=== PATIENT | female | born 1995 | race Caucasian/White ===

== ENCOUNTER 2018-07-22 21:39 | Emergency (ER) | payer OTHER, MEDICAID, SELFPAY ==
[2018-07-22 21:51] VITALS: BP 112/82; PULSE 104; RESP 18; TEMP 37.2; O2SAT 97; BMI 37.0
--- NOTE | 2018-07-22 22:42 | ED.RECABL ---
HPI - Recheck/Abnormal Lab/Rx General Chief Complaint: Recheck/Abnormal Lab/Rx Stated Complaint: 25 WKS UNABLE TO THINK WANTS TO PASS OUT Time Seen by Provider: 07/22/18 21:47 Source: patient Mode of arrival: ambulatory Limitations: no limitations History of Present Illness HPI narrative: 23-year-old female smoker is currently at 25 weeks and presents multiple rather vague symptoms. She states that for the past few days she has had some numbness and tingling of her face worse around her lips, the occasional spots in her vision. She denies nausea, vomiting or diarrhea. She denies any abdominal pain. She does have episodes hip pain which seems to be rather chronic for her. She was seen and evaluated at an outside facility yesterday and an appropriate evaluation and her diagnosis was anxiety. She presents to us today with ongoing symptoms and the request for a 2nd opinion. MD complaint: other Initial visit (ago): day(s) Initial visit for: other Symptoms since prior visit: no new symptoms Related Data Previous Rx's Medication Instructions Recorded promethazine 12.5 mg WI Q4-6H PRN #12 each 07/23/18 Allergies Allergy/AdvReac Type Severity Reaction Status Date / Time Iodinated Contrast- Oral and Allergy Verified 07/22/18 21:49 IV Dye metoclopramide [From Reglan] AdvReac Verified 07/22/18 21:48 Review of Systems Review of Systems ROS Unobtainable: All systems reviewed & are unremarkable except as noted in HPI and below Constitutional Denies chills, Reports fatigue, Denies fever(s), Denies lethargy and Denies weakness Eyes Denies change in vision, Denies eye discharge, Denies irritation and Reports loss of vision ENT Ears, Nose, Mouth, and Throat: Denies change in voice, Reports dizziness, Denies neck pain and Denies sore throat Cardiovascular Denies chest pain, Denies irregular heart rhythm, Denies lightheadedness, Denies palpitations, Denies dyspnea, Denies dyspnea on exertion and Denies orthopnea Respiratory Denies cough, Denies dyspnea, Denies dyspnea on exertion and Denies wheezing Gastrointestinal Gastrointestinal: Denies abdominal pain, Denies change in bowel habits, Denies diarrhea, Denies nausea and Denies vomiting Genitourinary Denies hematuria, Denies flank pain, Denies urinary incontinence and Denies urinary urgency Musculoskeletal Denies neck pain and Reports tingling Integumentary/Breasts Denies pruritus, Denies erythema, Denies rash and Denies wounds Neurologic Denies confusion, Reports dizziness, Reports loss of vision, Reports sensory deficit, Reports tingling and Denies weakness Psychiatric Denies anxiety, Denies confusion, Denies depression, Denies homicidal ideation and Denies suicidal ideation Endocrine Reports fatigue and Denies palpitations Hematologic/Lymphatic Denies easy bruising Allergic/Immunologic Denies wheezing PFSH Medical History Asthma (Acute) Kidney infection (Acute) PIH ( induced hypertension) (Acute) SVT (supraventricular tachycardia) (Acute) Surgical History Hx of appendectomy (Acute) Social History Smoking Status: Current every day smoker Social History Smoking Status: Current every day smoker Exam Narrative Exam Narrative: GENERAL: 23-year-old female in mild distress, seems a bit anxious HEAD: Atraumatic. Normocephalic. No temporal or scalp tenderness. EYES: Pupils equal round and reactive. Extraocular motions intact. No scleral icterus. No injection or drainage. ENT: Nose without bleeding, purulent drainage or septal hematoma. Throat without erythema, tonsillar hypertrophy or exudate. Uvula midline. Airway patent. NECK: Trachea midline. No JVD or lymphadenopathy. Supple, nontender, no meningeal signs. CARDIOVASCULAR: Regular rate and rhythm without murmurs, gallops, or rubs. RESPIRATORY: Clear to auscultation. Breath sounds equal bilaterally. No wheezes, rales, or rhonchi. GASTROINTESTINAL: Abdomen soft, non-tender, above umbilicus. No hepato-splenomegaly, or palpable masses. No guarding. EXTREMITIES: No clubbing, cyanosis, or edema. No joint tenderness, effusion, or edema noted. BACK: Nontender without deformity or crepitance. No flank tenderness. NEURO: AOx3. SKIN: No rash or erythema. Initial Vital Signs Initial Vital Signs: Vital Signs Temperature 99.0 F 07/22/18 21:51 Pulse Rate 104 H 07/22/18 21:51 Respiratory Rate 18 07/22/18 21:51 Blood Pressure 112/82 07/22/18 21:51 Pulse Oximetry 97 07/22/18 21:51 Course Orders Ordered: ED Orders 07/22/18 22:07 EKG-12 Lead Stat 07/22/18 22:40 Complete Blood Count AUTO DIFF Stat Comprehensive Metabolic Panel Stat Urinalysis and Microscopic Stat Reevaluation(s) Reevaluation #1: Lengthy discussion with the patient and family friend regarding imaging and the possibility of radiation exposure to the fetus, we've discussed that given ongoing neurologic symptoms of vision, facial numbness, arm/shoulder tingling that it would certainly be my recommendation to perform a head CT and shield abdomen. We've discussed that benefits outweigh risks. Patient has had questions answered to her apparent satisfaction Vital Signs - 8 hr 07/22/18 21:51 Temperature 99.0 F Pulse Rate 104 H Respiratory Rate 18 Blood Pressure 112/82 Pulse Oximetry 97 MDM - Recheck/Abnormal Lab/Rx Lab Data Attestation: I reviewed the patient's lab results. Result diagrams: 07/22/18 22:58 07/22/18 22:58 Lab Results 07/22/18 07/22/18 Range/Units 22:58 22:58 WBC 10.0 (4.5-11.0) X10^3/uL RBC 3.43 L (4.0-5.2) X10^6/uL Hgb 10.1 L (12.0-16.0) g/dL Hct 29.5 L (36-46) % MCV 86.2 (80-100) fL MCH 29.6 (26-34) PG MCHC 34.3 (30-36) % RDW 12.9 (11.6-14.8) % Plt Count 236 (150-400) X10^3/uL Neut % (Auto) 68.5 (50-75) % Lymph % (Auto) 18.7 L (25-40) % [place] % (Auto) 9.6 (3-14) % Eos % (Auto) 2.8 (2-4) % Baso % (Auto) 0.4 (0-2) % Neut # (Auto) 6800 (2593-1120) /uL Lymph # (Auto) 1900 (4875-4296) /uL [place] # (Auto) 1000 H (0-900) /uL Eos # (Auto) 300 (0-450) /uL Baso # (Auto) 0 (0-100) /uL Sodium 135 L (137-145) mmol/L Potassium 3.4 (3.4-5.1) mmol/L Chloride 104 (98-107) mmol/L Carbon Dioxide 26 (22-32) mmol/L BUN 10 (7-17) mg/dL Creatinine 0.50 L (0.52-1.04) mg/dL Estimated GFR > 60.0 (>60) mL/min BUN/Creatinine Ratio 20.0 (6-22) Glucose 95 (70-100) mg/dL Calcium 9.2 (8.4-10.2) mg/dL Total Bilirubin 0.1 L (0.2-1.3) mg/dL AST 7 L (14-36) IU/L ALT 18 (9-52) IU/L Alkaline Phosphatase 70 (38-126) U/L Total Protein 6.2 L (6.3-8.2) g/dL Albumin 3.1 L (3.5-5.0) g/dL Globulin 3.1 (1.7-4.1) g/dL Albumin/Globulin Ratio 1.0 (1.0-2.8) Urine Dip Bedside Urine Glucose Negative Bedside Urine Bilirubin - Negative Bedside Urine Ketone - Negative Urine Specific [place] 1.020 Bedside Urine Occult Blood - Negative Bedside Urine pH 6.0 Bedside Urine Protein - Negative Bedside Urine Urobilinogen - Negative Bedside Urine Nitrite - Negative Bedside Urine Leukocytes - Negative Esterase Imaging Data CT scan - head: Radiologist's impression: [address] [address] [address] Scan Report Signed Patient: Constanza Mackay [facility]#: [id number] : 1995Acct:[id number] Age/Sex: 23 / FDate of Service: 07/22/18 Loc: ED Accession Number: [id number] Procedure: CT head/brain wo con Ordering Provider: Jourdan Esqueda D.O. PROCEDURE: CT HEAD/BRAIN WO CON INDICATIONS: Headache, vision change, numbness tingling TECHNIQUE: Noncontrast 4.5 mm thick angled axial sections acquired from the foramen magnum to the vertex, with coronal and sagittal reformats. For radiation dose reduction, the following was used: automated exposure control, adjustment of mA and/or kV according to patient size. COMPARISON: None. FINDINGS: Image quality: Excellent. CSF spaces: Basal cisterns are patent. No extra-axial fluid collections. Ventricles are normal in size and shape. Brain: No midline shift. No intracranial masses or hemorrhage. No evidence acute stroke. Wiseman-white matter interface is normal. Skull and face: Calvarium and visualized facial bones are intact, without suspicious lesions. Sinuses: Visualized sinuses and mastoids are clear. IMPRESSION: Negative head CT, with no evidence of acute stroke, hemorrhage, or mass. Comment: Final report is concurrent with the initial interpretation by [facility] Dictated by: Cristian Poe M.D. on 07/23/2018 at 7:50 Approved by: Cristian Poe M.D. on 07/23/2018 at 7:51 MDM Narrative Medical decision making narrative: Multiple etiologies for patient's symptoms considered including: [Preeclampsia versus stroke versus electrolyte abnormality versus other] Patient's symptoms improved or duration of stay with above-stated therapies. Findings and discharge diagnosis discussed with patient/family followed by verbalization of understanding Return precautions discussed with patient/family whom verbalize understanding. Discharge Plan Departure Patient Disposition: Home Clinical Impression: Feared complaint without diagnosis, Facial numbness, Gastroesophageal reflux disease Discharge Date/Time: 07/23/18 01:38 Interventions: ED Discharge Assessment Last Done: 07/23/18 01:38 Instructions: DI for Gastroesophageal Reflux Disease (GERD) Activity Restrictions/Additional Instructions: *You have been diagnosed with [ facial numbness, GERD] *What to do: *Take medications as directed: [id number] proton pump inhibitors *Follow up with your primary care provider in 2-3 days, call for an appointment. Let them know you were seen in the Emergency Department and that we ask that you be seen in follow up *Return to ER if you should have any new, worsening or concerning symptoms Prescriptions: New promethazine 12.5 mg suppository 12.5 mg [place] Q4-6H PRN (Reason: nausea and vomiting) Qty: 12 RF: 0
[2018-07-22 23:10] LABS: Add Manual Diff / Slide Review NO; Basophils Absolute Auto 0 /uL (0-100); Basophils Percent Auto 0.4 % (0-2); Eosinophils Absolute Auto 300 /uL (0-450); Eosinophils Percent Auto 2.8 % (2-4); Hematocrit 29.5 % (36-46); Hemoglobin 10.1 g/dL (12.0-16.0); Lymphocytes Absolute Auto 1900 /uL (1100-4500); Lymphocytes Percent Auto 18.7 % (25-40); Mean Corpuscular HGB Conc 34.3 % (30-36); Mean Corpuscular Hemoglobin 29.6 PG (26-34); Mean Corpuscular Volume 86.2 fL (80-100); Monocytes Absolute Auto 1000 /uL (0-900); Monocytes Percent Auto 9.6 % (3-14); Neutrophils Absolute Auto 6800 /uL (1500-7000); Neutrophils Percent Auto 68.5 % (50-75); Platelet Count 236 X10^3/uL (150-400); Red Blood Cell Count 3.43 X10^6/uL (4.0-5.2); Red Cell Distribution Width 12.9 % (11.6-14.8)
[2018-07-22 23:14] LABS: Alanine Aminotransferase 18 IU/L (9-52); Albumin 3.1 g/dL (3.5-5.0); Alkaline Phosphatase 70 U/L (38-126); Aspartate Aminotransferase 7 IU/L (14-36); Bilirubin Total 0.1 mg/dL (0.2-1.3); Blood Urea Nitrogen 10 mg/dL (7-17); Calcium 9.2 mg/dL (8.4-10.2); Carbon Dioxide 26 mmol/L (22-32); Chloride 104 mmol/L (98-107); Estimated Glomerular Filt Rate > 60.0 mL/min (>60); Globulin 3.1 g/dL (1.7-4.1); Glucose 95 mg/dL (70-100); HEMOLYSIS < 15 (0-50); Potassium 3.4 mmol/L (3.4-5.1); Sodium 135 mmol/L (137-145); Total Protein 6.2 g/dL (6.3-8.2)
--- NOTE | 2018-07-22 23:33 | DI.CT.S_ITS ---
PROCEDURE: CT HEAD/BRAIN WO CON INDICATIONS: Headache, vision change, numbness tingling TECHNIQUE: Noncontrast 4.5 mm thick angled axial sections acquired from the foramen magnum to the vertex, with coronal and sagittal reformats. For radiation dose reduction, the following was used: automated exposure control, adjustment of mA and/or kV according to patient size. COMPARISON: None. FINDINGS: Image quality: Excellent. CSF spaces: Basal cisterns are patent. No extra-axial fluid collections. Ventricles are normal in size and shape. Brain: No midline shift. No intracranial masses or hemorrhage. No evidence acute stroke. Wiseman-white matter interface is normal. Skull and face: Calvarium and visualized facial bones are intact, without suspicious lesions. Sinuses: Visualized sinuses and mastoids are clear. IMPRESSION: Negative head CT, with no evidence of acute stroke, hemorrhage, or mass. Comment: Final report is concurrent with the initial interpretation by [facility] Dictated by: Cristian Poe M.D. on 07/23/2018 at 7:50 Approved by: Cristian Poe M.D. on 07/23/2018 at 7:51
[2018-07-23 01:38] VITALS: BP 121/70; PULSE 93; RESP 16; O2SAT 99
--- NOTE | 2018-07-23 22:46 | ED_ITS ---
HPI - Recheck/Abnormal Lab/Rx General Chief Complaint: Recheck/Abnormal Lab/Rx Stated Complaint: 25 WKS UNABLE TO THINK WANTS TO PASS OUT Time Seen by Provider: 07/22/18 21:47 Source: patient Mode of arrival: ambulatory Limitations: no limitations History of Present Illness HPI narrative: 23-year-old female smoker is currently at 25 weeks and presents multiple rather vague symptoms. She states that for the past few days she has had some numbness and tingling of her face worse around her lips, the occasional spots in her vision. She denies nausea, vomiting or diarrhea. She denies any abdominal pain. She does have episodes hip pain which seems to be rather chronic for her. She was seen and evaluated at an outside facility yesterday and an appropriate evaluation and her diagnosis was anxiety. She presents to us today with ongoing symptoms and the request for a 2nd opinion. MD complaint: other Initial visit (ago): day(s) Initial visit for: other Symptoms since prior visit: no new symptoms Related Data Previous Rx's Medication Instructions Recorded promethazine 12.5 mg [place] Q4-6H PRN #12 each 07/23/18 Allergies Allergy/AdvReac Type Severity Reaction Status Date / Time Iodinated Contrast- Oral and Allergy Verified 07/22/18 21:49 IV Dye metoclopramide [From Reglan] AdvReac Verified 07/22/18 21:48 Review of Systems Review of Systems ROS Unobtainable: All systems reviewed & are unremarkable except as noted in HPI and below Constitutional Denies chills, Reports fatigue, Denies fever(s), Denies lethargy and Denies weakness Eyes Denies change in vision, Denies eye discharge, Denies irritation and Reports loss of vision ENT Ears, Nose, Mouth, and Throat: Denies change in voice, Reports dizziness, Denies neck pain and Denies sore throat Cardiovascular Denies chest pain, Denies irregular heart rhythm, Denies lightheadedness, Denies palpitations, Denies dyspnea, Denies dyspnea on exertion and Denies orthopnea Respiratory Denies cough, Denies dyspnea, Denies dyspnea on exertion and Denies wheezing Gastrointestinal Gastrointestinal: Denies abdominal pain, Denies change in bowel habits, Denies diarrhea, Denies nausea and Denies vomiting Genitourinary Denies hematuria, Denies flank pain, Denies urinary incontinence and Denies urinary urgency Musculoskeletal Denies neck pain and Reports tingling Integumentary/Breasts Denies pruritus, Denies erythema, Denies rash and Denies wounds Neurologic Denies confusion, Reports dizziness, Reports loss of vision, Reports sensory deficit, Reports tingling and Denies weakness Psychiatric Denies anxiety, Denies confusion, Denies depression, Denies homicidal ideation and Denies suicidal ideation Endocrine Reports fatigue and Denies palpitations Hematologic/Lymphatic Denies easy bruising Allergic/Immunologic Denies wheezing PFSH Medical History Asthma (Acute) Kidney infection (Acute) PIH ( induced hypertension) (Acute) SVT (supraventricular tachycardia) (Acute) Surgical History Hx of appendectomy (Acute) Social History Smoking Status: Current every day smoker Social History Smoking Status: Current every day smoker Exam Narrative Exam Narrative: GENERAL: 23-year-old female in mild distress, seems a bit anxious HEAD: Atraumatic. Normocephalic. No temporal or scalp tenderness. EYES: Pupils equal round and reactive. Extraocular motions intact. No scleral icterus. No injection or drainage. ENT: Nose without bleeding, purulent drainage or septal hematoma. Throat without erythema, tonsillar hypertrophy or exudate. Uvula midline. Airway patent. NECK: Trachea midline. No JVD or lymphadenopathy. Supple, nontender, no meningeal signs. CARDIOVASCULAR: Regular rate and rhythm without murmurs, gallops, or rubs. RESPIRATORY: Clear to auscultation. Breath sounds equal bilaterally. No wheezes, rales, or rhonchi. GASTROINTESTINAL: Abdomen soft, non-tender, above umbilicus. No hepato- splenomegaly, or palpable masses. No guarding. EXTREMITIES: No clubbing, cyanosis, or edema. No joint tenderness, effusion, or edema noted. BACK: Nontender without deformity or crepitance. No flank tenderness. NEURO: AOx3. SKIN: No rash or erythema. Initial Vital Signs Initial Vital Signs: Vital Signs Temperature 99.0 F 07/22/18 21:51 Pulse Rate 104 H 07/22/18 21:51 Respiratory Rate 18 07/22/18 21:51 Blood Pressure 112/82 07/22/18 21:51 Pulse Oximetry 97 07/22/18 21:51 Course Orders Ordered: ED Orders 07/22/18 22:07 EKG-12 Lead Stat 07/22/18 22:40 Complete Blood Count AUTO DIFF Stat Comprehensive Metabolic Panel Stat Urinalysis and Microscopic Stat Reevaluation(s) Reevaluation #1: Lengthy discussion with the patient and family friend regarding imaging and the possibility of radiation exposure to the fetus, we've discussed that given ongoing neurologic symptoms of vision, facial numbness, arm/shoulder tingling that it would certainly be my recommendation to perform a head CT and shield abdomen. We've discussed that benefits outweigh risks. Patient has had questions answered to her apparent satisfaction Vital Signs - 8 hr 07/22/18 21:51 Temperature 99.0 F Pulse Rate 104 H Respiratory Rate 18 Blood Pressure 112/82 Pulse Oximetry 97 MDM - Recheck/Abnormal Lab/Rx Lab Data Attestation: I reviewed the patient's lab results. Result diagrams: 07/22/18 22:58 07/22/18 22:58 Lab Results 07/22/18 07/22/18 Range/Units 22:58 22:58 WBC 10.0 (4.5-11.0) X10^3/uL RBC 3.43 L (4.0-5.2) X10^6/uL Hgb 10.1 L (12.0-16.0) g/dL Hct 29.5 L (36-46) % MCV 86.2 (80-100) fL MCH 29.6 (26-34) PG MCHC 34.3 (30-36) % RDW 12.9 (11.6-14.8) % Plt Count 236 (150-400) X10^3/uL Neut % (Auto) 68.5 (50-75) % Lymph % (Auto) 18.7 L (25-40) % [place] % (Auto) 9.6 (3-14) % Eos % (Auto) 2.8 (2-4) % Baso % (Auto) 0.4 (0-2) % Neut # (Auto) 6800 (8108-1710) /uL Lymph # (Auto) 1900 (1669-6311) /uL [place] # (Auto) 1000 H (0-900) /uL Eos # (Auto) 300 (0-450) /uL Baso # (Auto) 0 (0-100) /uL Sodium 135 L (137-145) mmol/L Potassium 3.4 (3.4-5.1) mmol/L Chloride 104 (98-107) mmol/L Carbon Dioxide 26 (22-32) mmol/L BUN 10 (7-17) mg/dL Creatinine 0.50 L (0.52-1.04) mg/dL Estimated GFR > 60.0 (>60) mL/min BUN/Creatinine Ratio 20.0 (6-22) Glucose 95 (70-100) mg/dL Calcium 9.2 (8.4-10.2) mg/dL Total Bilirubin 0.1 L (0.2-1.3) mg/dL AST 7 L (14-36) IU/L ALT 18 (9-52) IU/L Alkaline Phosphatase 70 (38-126) U/L Total Protein 6.2 L (6.3-8.2) g/dL Albumin 3.1 L (3.5-5.0) g/dL Globulin 3.1 (1.7-4.1) g/dL Albumin/Globulin Ratio 1.0 (1.0-2.8) Urine Dip Bedside Urine Glucose Negative Bedside Urine Bilirubin - Negative Bedside Urine Ketone - Negative Urine Specific [place] 1.020 Bedside Urine Occult Blood - Negative Bedside Urine pH 6.0 Bedside Urine Protein - Negative Bedside Urine Urobilinogen - Negative Bedside Urine Nitrite - Negative Bedside Urine Leukocytes - Negative Esterase Imaging Data CT scan - head: Radiologist's impression: [address] [address] [address] Scan Report Signed Patient: Constanza Mackay [employer] [facility]#: [id number] : 1995Acct:[id number] Age/Sex: 23 / FDate of Service: 07/22/18 Loc: ED Accession Number: [id number] Procedure: CT head/brain wo con Ordering Provider: Jourdan Esqueda D.O. PROCEDURE: CT HEAD/BRAIN WO CON INDICATIONS: Headache, vision change, numbness tingling TECHNIQUE: Noncontrast 4.5 mm thick angled axial sections acquired from the foramen magnum to the vertex, with coronal and sagittal reformats. For radiation dose reduction, the following was used: automated exposure control, adjustment of mA and/or kV according to patient size. COMPARISON: None. FINDINGS: Image quality: Excellent. CSF spaces: Basal cisterns are patent. No extra-axial fluid collections. Ventricles are normal in size and shape. Brain: No midline shift. No intracranial masses or hemorrhage. No evidence acute stroke. Wiseman-white matter interface is normal. Skull and face: Calvarium and visualized facial bones are intact, without suspicious lesions. Sinuses: Visualized sinuses and mastoids are clear. IMPRESSION: Negative head CT, with no evidence of acute stroke, hemorrhage, or mass. Comment: Final report is concurrent with the initial interpretation by [facility] Dictated by: Cristian Poe M.D. on 07/23/2018 at 7:50 Approved by: Cristian Poe M.D. on 07/23/2018 at 7:51 MDM Narrative Medical decision making narrative: Multiple etiologies for patient's symptoms considered including: [Preeclampsia versus stroke versus electrolyte abnormality versus other] Patient's symptoms improved or duration of stay with above-stated therapies. Findings and discharge diagnosis discussed with patient/family followed by verbalization of understanding Return precautions discussed with patient/family whom verbalize understanding. Discharge Plan Departure Patient Disposition: Home Clinical Impression: Feared complaint without diagnosis, Facial numbness, Gastroesophageal reflux disease Discharge Date/Time: 07/23/18 01:38 Interventions: ED Discharge Assessment Last Done: 07/23/18 01:38 Instructions: DI for Gastroesophageal Reflux Disease (GERD) Activity Restrictions/Additional Instructions: *You have been diagnosed with [ facial numbness, GERD] *What to do: *Take medications as directed: [id number] proton pump inhibitors *Follow up with your primary care provider in 2-3 days, call for an appointment. Let them know you were seen in the Emergency Department and that we ask that you be seen in follow up *Return to ER if you should have any new, worsening or concerning symptoms Prescriptions: New promethazine 12.5 mg suppository 12.5 mg [place] Q4-6H PRN (Reason: nausea and vomiting) Qty: 12 RF: 0
== END 2018-07-23 01:38 | disposition home or self-care (01) ==
PROVIDERS: Emergency Provider Emergency Medicine
DX: R20.0 Anesthesia of skin (principal); K21.9 Gastro-esophageal reflux disease without esophagitis; H53.8 Other visual disturbances; Z71.1 Person with feared health complaint in whom no diagnosis is made; Z33.1 Pregnant state, incidental
CPT/HCPCS: 36591; 70450; 80053; 81003; 85025; 93005; 99283; 99285; 99291

== ENCOUNTER 2018-10-21 20:59 | Outpatient (CLI) | payer OTHER, MEDICAID, SELFPAY ==
[2018-10-21 22:08] LABS: Appearance Urine UA CLEAR; Bilirubin Urine UA NEGATIVE (NEGATIVE); Color Urine UA YELLOW; Glucose Urine UA NEGATIVE (Negative); Ketones Urine UA NEGATIVE (NEGATIVE); Leukocyte Esterase Urine UA NEGATIVE (NEGATIVE); Nitrite Urine UA NEGATIVE (Negative); Occult Blood Urine UA NEGATIVE (Negative); Protein Urine UA 1+ (Negative); RBC Urine None Seen (0-5/HPF); Specific Gravity Urine UA 1.015 (1.000-1.035); Urobilinogen Urine UA 0.2 E.U./dL (0.2); WBC Urine None Seen (0-5/HPF); pH Urine UA 8.5 (4.5-8.0)
[2018-10-21 22:16] LABS: Bacteria Urine Many (>30); Mucus Urine 1+ (Negative); Squamous Epithelial Cell Urine 0-1 /HPF (0-5/HPF)
[2018-10-21 22:18] LABS: Culture Indicated Urine Cult Not Indicated
[2018-10-21] MEDS: MORPHINE 10 MG/ML INJ IM (23:30)
[2018-10-21] MEDS: ONDANSETRON 4 MG ODT SL (23:30)
[2018-10-21] MEDS: MAG HYDROX/ALUM/SIMETH 30 ML UDC PO (23:30)
== END 2018-10-21 23:45 | disposition home or self-care (01) ==
LOC: OB 10-24 14:55
PROVIDERS: Visit Provider Family Medicine
DX: O26.893 Other specified pregnancy related conditions, third trimester (principal); M54.9 Dorsalgia, unspecified; R10.11 Right upper quadrant pain; R11.11 Vomiting without nausea; Z3A.38 38 weeks gestation of pregnancy
CPT/HCPCS: 59050; 81001; 96372; G0378; G0379; J2270

== ENCOUNTER 2021-05-18 23:09 | Emergency (ER) | payer OTHER, MEDICAID, SELFPAY ==
[2021-05-18 23:17] VITALS: BP 120/70; PULSE 114; RESP 22; TEMP 36.7; O2SAT 99
[2021-05-18 23:40] LABS: Add Manual Diff / Slide Review NO; Basophils Absolute Auto 100 /uL (0-100); Basophils Percent Auto 0.7 % (0-2); Eosinophils Absolute Auto 400 /uL (0-450); Eosinophils Percent Auto 4.5 % (2-4); Hemoglobin 12.9 g/dL (12.0-16.0); Lymphocytes Absolute Auto 2500 /uL (1100-4500); Lymphocytes Percent Auto 25.3 % (25-40); Mean Corpuscular Hemoglobin 28.3 PG (26-34); Mean Corpuscular Volume 83.4 fL (80-100); Monocytes Absolute Auto 800 /uL (0-900); Monocytes Percent Auto 8.2 % (3-14); Neutrophils Absolute Auto 6100 /uL (1500-7000); Neutrophils Percent Auto 61.3 % (50-75); Platelet Count 222 X10^3/uL (150-400); Red Blood Cell Count 4.56 X10^6/uL (4.0-5.2); Red Cell Distribution Width 13.7 % (11.6-14.8)
[2021-05-18 23:47] LABS: BUN Creatinine Ratio 17.9 (6-22); Blood Urea Nitrogen 15 mg/dL (7-17); Carbon Dioxide 26 mmol/L (22-32); Chloride 108 mmol/L (98-107); Estimated Glomerular Filt Rate > 60.0 mL/min (>60); Glucose 79 mg/dL (70-100); HEMOLYSIS 19 (0-50); Potassium 3.7 mmol/L (3.4-5.1); Sodium 139 mmol/L (137-145)
--- NOTE | 2021-05-18 23:51 | ED_ITS ---
HPI - Female Genitourinary General Chief complaint: Urogenital-Female Stated complaint: heart palps/kidney pain/vag. discharge x3 days Time Seen by Provider: 05/18/21 23:15 Source: patient Mode of arrival: Ambulatory History of Present Illness HPI Narrative: 26-year-old female daily smoker with history of SVT presents with her sister and a chief complaint of pelvic discomfort and vaginal discharge over the past few days. She does have some left lower quadrant discomfort. She denies fever, chills nor nausea or vomiting. She does admit to a new sexual partner about 2 weeks ago. Additionally, she states that she has some discomfort and itching along with a rash in the skin folds of her groin and also near her scar. She denies any dysuria, frequency or urgency. Additionally, she complains of increasing palpitations over the course of the day but denies any chest pain or shortness of breath. She has a longstanding history of SVT and has been on metoprolol but has run out of her prescription because she currently does not have a doctor. Related Data Previous Rx's Medication Instructions Recorded promethazine 12.5 mg rectal 12.5 mg OR Q4-6H PRN #12 each 07/23/18 suppository doxycycline hyclate 100 mg tablet 100 mg PO BID #20 tab 05/19/21 hydrocodone 5 mg-acetaminophen 325 1 tab PO Q4-6H PRN #10 tab 05/19/21 mg tablet ketorolac 10 mg tablet 10 mg PO Q6H PRN #14 tab 05/19/21 metoprolol tartrate 25 mg tablet 25 mg PO BID #60 tab 05/19/21 metronidazole 500 mg tablet 500 mg PO BID 14 Days #28 tab 05/19/21 nystatin 100,000 unit/gram topical 1 applic TOPICAL BID 7 Days #30 g 05/19/21 cream ondansetron 4 mg disintegrating 4 mg PO TID-QID PRN #10 tab 05/19/21 tablet Allergies Allergy/AdvReac Type Severity Reaction Status Date / Time Iodinated Contrast Media Allergy Verified 07/22/18 21:49 metoclopramide [From Reglan] AdvReac Verified 07/22/18 21:48 Review of Systems Review of Systems Narrative: GENERAL: Denies chills, fatigue, malaise, fever, sweats. HEENT: Denies sinus pain, ear pain, sore throat, difficulty swallowing, dizziness. RESPIRATORY: Denies dyspnea, cough, wheezing, hemoptysis, sputum. CARDIOVASCULAR: Denies chest pain, palpitations, orthopnea, edema, GASTROINTESTINAL: Denies nausea, vomiting, abdominal pain, diarrhea, constipation, melena. : See HPI. MUSCULOSKELETAL: denies weakness, joint pain, or bony pain SKIN: See HPI NEUROLOGIC: Denies weakness, headache, numbness, change in speech, confusion, seizures, incoordination. PSYCHIATRIC: No concerning psychosocial issues. 12 point review of systems is negative except for those stated above Patient History Medical History (Updated 05/19/21 @ 01:00 by Jourdan Esqueda DO) Asthma Kidney infection PIH ( induced hypertension) SVT (supraventricular tachycardia) Surgical History Hx of appendectomy alcohol intake frequency: other Substance Use Type: does not use Exam Narrative Exam Narrative: GENERAL: [26 year old patient appears stated age. Well-developed patient, in mild distress. HEAD: Atraumatic. Normocephalic. EYES: Pupils equal round and reactive. Extraocular motions intact. No scleral icterus. No injection or drainage. ENT: Nose without bleeding, purulent drainage. Throat without erythema, tonsillar hypertrophy or exudate. Airway patent. NECK: Trachea midline. Non tender CARDIOVASCULAR: Regular rate and rhythm without murmurs, gallops, or rubs. RESPIRATORY: Clear to auscultation. Breath sounds equal bilaterally. No wheezes, rales, or rhonchi. GASTROINTESTINAL: Abdomen soft, non-tender, nondistended. PELVIC: Foul-smelling yellowish discharge from a closed cervix. No adnexal masses but patient does report significant tenderness to palpation of by manual exam on her left side. This is performed with a female nursing obstetrician and gynaecologist at the bedside and patient's permission EXTREMITIES: No edema or joint tenderness. BACK: Nontender without deformity or crepitance. No flank tenderness. NEURO: AOx3. SKIN: No rash or erythema of visible areas Initial Vital Signs Initial Vital Signs: Vital Signs Temperature 98.0 F 05/18/21 23:17 Pulse Rate 114 H 05/18/21 23:17 Respiratory Rate 22 05/18/21 23:17 Blood Pressure 120/70 05/18/21 23:17 Pulse Oximetry 99 05/18/21 23:17 Course Orders Ordered: ED Orders 05/18/21 23:28 BMP [Basic Metabolic Panel] Stat CBC Auto Diff [Complete Blood Count AUTO DIFF] Stat TSH w/ Reflex to FT4 Stat 05/18/21 23:41 Chlamydia Gonorrhea PCR -URINE Stat Genital Culture Stat Wet Prep Tric BV Naheed Stat 05/19/21 US pelvic complete Stat 05/19/21 00:10 Test Urine Stat Urinalysis and Microscopic Stat Urine Culture Stat Discontinued Medications Hydrocodone Bitart/Acetaminophen (Hydrocodone/Acet 5/325 Prepack) 1 bottle MISC SEEINSTR ONE Stop: 05/19/21 00:48 Last Admin: 05/19/21 01:04 Dose: 1 bottle Documented by: CARISSA Hydromorphone HCl (Hydromorphone 0.5 Mg Inj) 0.5 mg IV NOW ONE Stop: 05/19/21 00:06 Last Admin: 05/19/21 00:11 Dose: 0.5 mg Documented by: TOÑO Sodium Chloride (Normal Saline 0.9%) 1,000 mls @ 1,000 mls/hr IV BOLUS ONE Stop: 05/19/21 00:38 Last Admin: 05/19/21 00:00 Dose: 1,000 mls/hr Documented by: TOÑO Ceftriaxone Sodium 500 mg/ (Dextrose) 50 mls @ 100 mls/hr IV NOW ONE Stop: 05/18/21 23:40 Last Infusion: 05/19/21 00:53 Dose: 0 mls/hr Documented by: Admin: 05/19/21 00:00 Dose: 100 mls/hr Documented by: TOÑO Ceftriaxone Sodium 1,000 mg/ (Sodium Chloride) 100 mls @ 200 mls/hr IV NOW ONE Stop: 05/18/21 23:56 Last Admin: 05/19/21 00:04 Dose: Not Given Documented by: TOÑO Ketorolac Tromethamine (Ketorolac 30 Mg/Ml Vial) 15 mg IV NOW ONE Stop: 05/18/21 23:40 Last Admin: 05/19/21 00:00 Dose: 15 mg Documented by: TOÑO Ondansetron HCl (Ondansetron 4 Mg/2 Ml Inj) 4 mg IV NOW ONE Stop: 01/23/22 23:40 Last Admin: 05/19/21 00:00 Dose: 4 mg Documented by: TOÑO Ondansetron HCl (Ondansetron 4 Mg Odt Prepack) 1 bottle MISC SEEINSTR ONE Stop: 05/19/21 00:48 Last Admin: 05/19/21 01:04 Dose: 1 bottle Documented by: CARISSA Vital Signs Vital signs: Vital Signs - 8 hr 05/18/21 23:17 05/19/21 01:10 Temperature 98.0 F Pulse Rate 114 H 96 H Respiratory Rate 22 18 Blood Pressure 120/70 122/68 Pulse Oximetry 99 100 MDM - Female Genitourinary Lab Data Result diagrams: 05/18/21 23:28 05/18/21 23:28 Labs: Lab Results 05/18/21 05/18/21 05/18/21 Range/Units 23:28 23:28 23:28 WBC 10.0 (4.5-11.0) X10^3/uL RBC 4.56 (4.0-5.2) X10^6/uL Hgb 12.9 (12.0-16.0) g/dL Hct 38.0 (36-46) % MCV 83.4 (80-100) fL MCH 28.3 (26-34) PG MCHC 34.0 (30-36) % RDW 13.7 (11.6-14.8) % Plt Count 222 (150-400) X10^3/uL Neut % (Auto) 61.3 (50-75) % Lymph % (Auto) 25.3 (25-40) % Dawes % (Auto) 8.2 (3-14) % Eos % (Auto) 4.5 H (2-4) % Baso % (Auto) 0.7 (0-2) % Neut # (Auto) 6100 (7492-0844) /uL Lymph # (Auto) 2500 (2028-3907) /uL Dawes # (Auto) 800 (0-900) /uL Eos # (Auto) 400 (0-450) /uL Baso # (Auto) 100 (0-100) /uL Sodium 139 (137-145) mmol/L Potassium 3.7 (3.4-5.1) mmol/L Chloride 108 H (98-107) mmol/L Carbon Dioxide 26 (22-32) mmol/L BUN 15 (7-17) mg/dL Creatinine 0.84 (0.52-1.04) mg/dL Estimated GFR > 60.0 (>60) mL/min BUN/Creatinine Ratio 17.9 (6-22) Glucose 79 (70-100) mg/dL Calcium 9.0 (8.4-10.2) mg/dL TSH 0.73 (0.47-4.68) uIU/mL Urine Color Urine Appearance Urine pH (4.5-8.0) Ur Specific Thoreau (1.000-1.035) Urine Protein (Negative) Urine Glucose (UA) (Negative) g/dL Urine Ketones (NEGATIVE) Urine Occult Blood (Negative) Urine Nitrate (Negative) Urine Bilirubin (NEGATIVE) Urine Urobilinogen (0.2) E.U./dL Ur Leukocyte Esterase (NEGATIVE) Urine RBC (0-5/HPF) Urine WBC (0-5/HPF) Ur Squamous Epith Cells (0-5/HPF) Urine Bacteria (None) Urine Mucus (Negative) Urine Trichomonas (None Seen) Ur Culture Indicated? Urine Test (Negative) 05/19/21 05/19/21 Range/Units 00:10 00:10 WBC (4.5-11.0) X10^3/uL RBC (4.0-5.2) X10^6/uL Hgb (12.0-16.0) g/dL Hct (36-46) % MCV (80-100) fL MCH (26-34) PG MCHC (30-36) % RDW (11.6-14.8) % Plt Count (150-400) X10^3/uL Neut % (Auto) (50-75) % Lymph % (Auto) (25-40) % Dawes % (Auto) (3-14) % Eos % (Auto) (2-4) % Baso % (Auto) (0-2) % Neut # (Auto) (0197-9839) /uL Lymph # (Auto) (9271-3929) /uL Dawes # (Auto) (0-900) /uL Eos # (Auto) (0-450) /uL Baso # (Auto) (0-100) /uL Sodium (137-145) mmol/L Potassium (3.4-5.1) mmol/L Chloride (98-107) mmol/L Carbon Dioxide (22-32) mmol/L BUN (7-17) mg/dL Creatinine (0.52-1.04) mg/dL Estimated GFR (>60) mL/min BUN/Creatinine Ratio (6-22) Glucose (70-100) mg/dL Calcium (8.4-10.2) mg/dL TSH (0.47-4.68) uIU/mL Urine Color Yellow Urine Appearance Clear Urine pH 6.5 (4.5-8.0) Ur Specific Thoreau 1.020 (1.000-1.035) Urine Protein Negative (Negative) Urine Glucose (UA) Negative (Negative) g/dL Urine Ketones Negative (NEGATIVE) Urine Occult Blood Trace-lysed (Negative) Urine Nitrate Negative (Negative) Urine Bilirubin Negative (NEGATIVE) Urine Urobilinogen 0.2 (0.2) E.U./dL Ur Leukocyte Esterase 2+ H (NEGATIVE) Urine RBC 1-5/hpf (0-5/HPF) Urine WBC 1-5/hpf (0-5/HPF) Ur Squamous Epith Cells 1-5 /hpf (0-5/HPF) Urine Bacteria Moderate (10-30) H (None) Urine Mucus 1+ H (Negative) Urine Trichomonas 1-5/hpf H (None Seen) Ur Culture Indicated? Specimen cultured Urine Test Negative (Negative) Discharge Plan Departure Patient Disposition: Home Clinical Impression: Acute pelvic inflammatory disease (PID), Heart palpitations, Trichomonas vaginalis (TV) infection Instructions: DI for Pelvic Inflammatory Disease (PID) Activity Restrictions/Additional Instructions: *You have been diagnosed with [Pelvic Inflammatory Disease, Palpiations and Intertrigo ] *What to do: *Please continue to take your regular medications as directed. [ x] New medication prescriptions sent to your pharmacy: [ [facility] in [place]] [ ] New medication written as a paper prescription [ ] No new medications given *Please follow up with your primary care provider in 2-3 days, call for an appointment. Let them know you were seen in the Emergency Department and that we ask that you be seen in follow up. We will electronically transmit a record of today's note if your PCP is in our system *If you do not have a primary care provider please contact the [facility] Resource line at [phone]. They will ask some questions about your medical history and help get you set up with a doctor in the community. Avoid sexual contact until your symptoms have cleared. To not consume any alcohol while taking metronidazole (Flagyl) as it cause you to become violently ill with nausea, vomiting abdominal cramping and skin flushing. *Return to Emergency Department if you should have any new, worsening or concerning symptoms, such as [fever greater than 101 F, shaking chills, worsening pain, persistent vomiting or other bothersome symptoms] You have been prescribed a short course of narcotic medications. These are potentially dangerous and addictive medications that should be used carefully. While on these medications you cannot drive or operate heavy machinery. Additionally, you cannot sign legal documents or perform any duties such as t his. 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 Please understand that we cannot provide further refills of narcotics or controlled substances through the ED and your pain management will need to be through your Primary Care Provider Prescriptions: New hydrocodone-acetaminophen 5-325 mg tablet 1 tab PO Q4-6H PRN (Reason: pain) Qty: 10 0RF ketorolac 10 mg tablet 10 mg PO Q6H PRN (Reason: pain) Qty: 14 0RF ondansetron 4 mg tablet,disintegrating 4 mg PO TID-QID PRN (Reason: nausea and vomiting) Qty: 10 0RF doxycycline hyclate 100 mg tablet 100 mg PO BID Qty: 20 0RF metronidazole 500 mg tablet 500 mg PO BID 14 Days Qty: 28 0RF metoprolol tartrate 25 mg tablet 25 mg PO BID Qty: 60 0RF nystatin 100,000 unit/gram cream 1 applic topical BID 7 Days Qty: 30 0RF No Action promethazine 12.5 mg suppository 12.5 mg OR Q4-6H PRN (Reason: nausea and vomiting) Qty: 12 0RF
[2021-05-19] MEDS: KETOROLAC 30 MG/ML VIAL 15 MG IV
[2021-05-19] MEDS: cefTRIAXone 500 MG in DEXTROSE 5 % IN WATER 50 ML 100 ML IV
[2021-05-19] MEDS: SODIUM CHLORIDE 0.9% 1,000 ML 1000 ML IV
[2021-05-19] MEDS: ONDANSETRON 4 MG/2 ML INJ IV
--- NOTE | 2021-05-19 | DI.US.S_ITS ---
PROCEDURE: US PELVIC COMPLETE INDICATIONS: LLQ PAIN, VAGINAL DISCHARGE TECHNIQUE: Real-time scanning was performed of the pelvic organs, with image documentation. Additional endovaginal scanning was necessary due to incomplete visualization of the adnexal and endometrial structures by transabdominal scanning. COMPARISON: None. FINDINGS: The uterine body measures 5.3 x 6.7 x 10.6 cm. No uterine mass. Heterogenous echotexture in the uterus. The endometrial stripe complex measures 14 mm in double air thickness. Both ovaries are normal in size and appearance. The right ovary measures 2.1 x 2.6 x 3.9 cm with multiple cysts measuring up to 1.6 cm. The left ovary measures 1.9 x 2.0 x 2.9 cm and is unremarkable. IMPRESSION: Enlarged uterus with heterogenous echotexture worrisome for adenomyosis. Otherwise normal study. We strive to produce accurate, complete, and clear reports of imaging services. To assist us in improving patient care, this report was composed using standard report templates and voice recognition software. Therefore, it may contain abnormal punctuation, insertions and/or omissions. Occasional wrong-word or sound-alike substitutions may occur. Though we review the report and make efforts to correct it, we do recommend that the report be read carefully in proper context to recognize any text inaccuracies. Dictated by: uCong Olguin M.D. on 05/19/2021 at 0:58 Approved by: Cuong Olguin M.D. on 05/19/2021 at 1:00
[2021-05-19] MEDS: HYDROMORPHONE 0.5 MG INJ IV (00:11)
[2021-05-19 00:23] LABS: TSH w/ Reflex to FT4 0.73 uIU/mL (0.47-4.68)
[2021-05-19] MEDS: HYDROCODONE/ACET 5/325 PREPACK 1 BOTTLE MISC (01:04)
[2021-05-19] MEDS: ONDANSETRON 4 MG ODT PREPACK 1 BOTTLE MISC (01:04)
[2021-05-19 01:10] VITALS: BP 122/68; PULSE 96; RESP 18; O2SAT 100
[2021-05-19 01:15] LABS: Pregnancy Test Urine Negative (Negative)
[2021-05-19 01:16] LABS: Appearance Urine UA CLEAR; Bilirubin Urine UA NEGATIVE (NEGATIVE); Color Urine UA YELLOW; Glucose Urine UA NEGATIVE (Negative); Ketones Urine UA NEGATIVE (NEGATIVE); Leukocyte Esterase Urine UA 2+ (NEGATIVE); Nitrite Urine UA NEGATIVE (Negative); Occult Blood Urine UA TRACE-LYSED (Negative); Protein Urine UA NEGATIVE (Negative); Urobilinogen Urine UA 0.2 E.U./dL (0.2)
[2021-05-19 01:18] LABS: pH Urine UA 6.5 (4.5-8.0)
[2021-05-19 01:21] LABS: RBC Urine 1-5/HPF (0-5/HPF); Squamous Epithelial Cell Urine 1-5 /HPF (0-5/HPF); WBC Urine 1-5/HPF (0-5/HPF)
[2021-05-19 01:22] LABS: Bacteria Urine Moderate (10-30); Culture Indicated Urine Specimen Cultured; Mucus Urine 1+ (Negative); Trichomonas Urine 1-5/HPF (None Seen)
[2021-05-19 01:44] LABS: Urine N gonorrhoeae NOT DETECTED
[2021-05-19 02:12] LABS: Urine Chlamydia NOT DETECTED
--- NOTE | 2021-05-27 16:17 | PC.NURSE ---
Late entry. NS bolus complete 99
== END 2021-05-19 01:14 | disposition home or self-care (01) ==
PROVIDERS: Emergency Provider Emergency Medicine
DX: N73.0 Acute parametritis and pelvic cellulitis (principal); A59.01 Trichomonal vulvovaginitis; R00.2 Palpitations
CPT/HCPCS: 36415; 76830; 76856; 80048; 81001; 81025; 84443; 85025; 87070; 87077; 87086; 87147; 87205; 87210; 87252; 87491; 87591; 96365; 96375; 99284; J0696; J1170; J1885; J2405